=== PATIENT | female | born 1985 | race African-American/Black ===

== ENCOUNTER 2016-11-25 00:03 | Inpatient (IN) | payer OTHER ==
[2016-11-25 00:33] VITALS: BMI 48.1
[2016-11-25] MEDS ORDERED: Promethazine HCl 25 MG/ML VIAL IM PRN ×2 (01:29→04:11)
[2016-11-25] MEDS ORDERED: Acetaminophen 500 MG TAB PO PRN (01:29)
[2016-11-25] MEDS ORDERED: Ondansetron HCl/PF 4 MG/2 ML Vial IVP PRN ×3 (01:29→04:11)
[2016-11-25] MEDS ORDERED: Bicitra 30 ML UDCUP PO SCH (01:30)
[2016-11-25 01:49] LABS: Hematocrit 33.6 % (36.0-47.0); Mean Platelet Volume 6.2 fL (7.4-10.4); White Blood Cell (WBC) Count 8.9 thou/uL (4.8-10.8)
[2016-11-25] MEDS: Lactated Ringer's 1,000 ML IV SCH ×3 (01:59→19:46)
[2016-11-25] MEDS ORDERED: Bupivacaine/Epinephrine 0.5% 10 ML VIAL ONE (02:59)
[2016-11-25] MEDS ORDERED: Fentanyl 100 MCG/2 ML VIAL ONE ×2 (02:59→03:25)
[2016-11-25] MEDS ORDERED: Dexamethasone 4 mg/ml Vial ONE (03:21)
[2016-11-25] MEDS ORDERED: Ondansetron HCl/PF 4 MG/2 ML Vial ONE (03:21)
[2016-11-25] MEDS ORDERED: Ketorolac Tromethamine 30 MG/ML VIAL ONE (03:21)
[2016-11-25] MEDS ORDERED: Oxytocin 10 UNITS/ML VIAL ONE (03:21)
[2016-11-25] MEDS ORDERED: Naloxone HCl 0.4 mg/ml Vial IVP PRN ×2 (04:11)
[2016-11-25] MEDS ORDERED: HYDROmorphone 2 MG/ML VIAL SLOW IVP PRN (04:11)
[2016-11-25] MEDS ORDERED: Naloxone HCl 0.4 mg/ml Vial IV PRN (04:11)
[2016-11-25] MEDS ORDERED: Meperidine HCl/PF 25 MG/ML VIAL SLOW IVP PRN (04:11)
[2016-11-25] MEDS ORDERED: Eucerin (Mineral Oil/Petrolatum,White) 30 gm Jar TOP PRN (04:11)
[2016-11-25] MEDS ORDERED: Promethazine HCl 25 MG SUPP PR PRN (04:11)
[2016-11-25] MEDS ORDERED: Communication Order-Pharmacy FS SCH (04:15)
[2016-11-25] MEDS ORDERED: Ketorolac Tromethamine 30 MG/ML VIAL IVP SCH (04:15)
[2016-11-25] MEDS ORDERED: Bisacodyl 10 MG SUPP PR PRN (05:56)
[2016-11-25] MEDS ORDERED: Acetaminophen 325 MG TAB PO PRN (05:56)
[2016-11-25] MEDS ORDERED: Adacel (T-DAP) 0.5 ML VIAL IM ONE (05:56)
[2016-11-25] MEDS ORDERED: Lanolin Ointment 7 GM TUBE TOP PRN (05:56)
[2016-11-25] MEDS: Ibuprofen 800 MG TAB PO SCH ×2 (06:36→17:40)
[2016-11-25] MEDS: diphenhydrAMINE HCl 50 MG/ML 1 ML VIAL IVP PRN ×2 (08:43→17:41)
--- NOTE | 2016-11-25 09:35 | PDOC.LDHP ---
Labor and Delivery H&P HPI: Pt with previous h/o preE x 2, short IPI and preceding complicated by FGR and delivered at 31w by presents with worsening ctx and found to have changed from 1 to 4 cm, no LOF, VB, or preE symptoms. PMH: as above PSH: All: latex Meds: PNV, ASA SH: denies Apple FH: noncontributory Previous surgical history: low tranverse CS Allergies/Adverse Reactions: Allergies Allergy/AdvReac Type Severity Reaction Status Date / Time latex Allergy Intermediate Hives Verified 11/25/16 00:34 FLU SHOT Allergy Hives Uncoded 11/21/16 05:27 Social history: none - Physical Exam General: other (Pain during ctx) Heart: RRR Lungs: nonlabored breathing Abdomen: gravid Extremeties: no edema FHT: category 1 - Assessment L&D Assessment: labor - Plan Plan: to OR for section (Pt s/p 2 doses BTMZ. Declines NATANAEL d/t short IPI and risks after counseling. To OR for RLTCD. NICU notified.)
--- NOTE | 2016-11-25 10:48 | OP-2 ---
DATE OF PROCEDURE: 11/25/2016 RESIDENT SURGEON: Mariano Rich M.D. ATTENDING: Melo Wells M.D. PROCEDURE PERFORMED: Repeat low-transverse section. PREOPERATIVE DIAGNOSES: 1. Pre-term intrauterine . 2. Prior x2. 3. History of preclampsia. 4. History of intrauterine growth resection with prior . 5. History of multiple first trimester losses. POSTOPERATIVE DIAGNOSES: 1. Pre-term intrauterine , delivered. 2. Prior x2. 3. History of preclampsia. 4. History of intrauterine growth resection with prior . 5. History of multiple first trimester losses. INDICATIONS: The patient is a 31-year-old G7, P1-1-4-2 at 34.4 weeks gestation who presented in latent labor because she was planned for a repeat section. The patient then changed from 1 cm to 4 cm over the course of 2 hours and therefore, was taken back for repeat . PROCEDURE IN DETAIL: After risks, benefits, and alternatives were explained to the patient, she gave informed consent. Preoperative antibiotics included cefazolin 2 grams IV. The patient was taken to the operating room and spinal anesthesia was administered. She was placed in supine position with a left tilt. She was prepped and draped in the usual sterile fashion. A Pfannenstiel incision was made with scalpel and carried down to level of the fascia, which was sharply nicked. Fascial cut was extended bilaterally with Mendez scissors. The inferior and superior edges of the cut fascial edges were elevated with Alexander clamps and underlying rectus muscles were sharply and bluntly dissected free. The recti were divided digitally and retracted manually. The peritoneum was entered bluntly and retracted manually. Bob O was placed. Bladder flap was created using Metzenbaum scissors. Low transverse score was made with scalpel and uterus was entered in the midline with the scalpel. Clear fluid was seen. Hysterotomy was extended manually. The infant was noted to be in vertex position, face up and was easily delivered by fundal pressure. Mouth and nares were bulb suctioned. Cord was clamped and cut, and grossly normal male infant was handed to waiting nurse. Cord blood was obtained. Placenta was manually extracted, found to be intact with three-vessel cord and discarded. The uterus was externalized. The endometrium was curetted with a dry lap. A bladder blade was placed and the uterus was then closed with a running locking 1 Monocryl suture. Following this, hemostasis was noted. Various bleeders were cauterized. Then a minor bleeder was noted in the midline of the hysterotomy, which was closed with a [id number] 1 Monocryl. A 1 cm uterine fibroid was noted posterior to the right fallopian tube. Fascia was closed with running nonlocking 0 PDS suture. Subcutaneous tissue was irrigated and various bleeders were cauterized. Skin was approximated with janene and pressure dressing was placed. All counts were correct. The patient tolerated the procedure well and was taken to recovery room in stable condition. ESTIMATED BLOOD LOSS: 600 mL. COMPLICATIONS: None. SPECIMENS: Cord blood sent to lab for blood type. FINDINGS: Grossly normal male with Apgars of 7 and 9. Grossly normal placenta with three-vessel cord discarded. DRAINS: Kirk to gravity draining clear urine. MTDD
[2016-11-25] MEDS: Ketorolac Tromethamine 30 MG/ML VIAL IVP PRN (17:41)
[2016-11-25] MEDS: Prenatal Vitamin 1 TAB PO SCH (17:43)
[2016-11-26] MEDS: Ketorolac Tromethamine 30 MG/ML VIAL IVP PRN (00:28)
[2016-11-26] MEDS: diphenhydrAMINE HCl 50 MG/ML 1 ML VIAL IVP PRN (00:28)
[2016-11-26] MEDS: Ibuprofen 800 MG TAB PO SCH ×4 (00:39→22:13)
[2016-11-26] MEDS: Lactated Ringer's 1,000 ML IV SCH ×3 (02:23→18:25)
[2016-11-26 05:45] LABS: Hematocrit 30.8 % (36.0-47.0); Mean Platelet Volume 6.3 fL (7.4-10.4); Red Blood Cell (RBC) Count 3.69 mill/uL (4.20-5.40); White Blood Cell (WBC) Count 12.7 thou/uL (4.8-10.8)
--- NOTE | 2016-11-26 09:03 | PDOC.PP ---
Post Progress Note Post Day #: 2 PO intake tolerated: yes Flatus: yes Ambulation: yes Vital Signs (12 hours) Temp Pulse Resp BP Pulse Ox 11/26/16 04:20 97.9 F 86 20 126/68 99 11/26/16 00:36 98.3 F 100 18 11/26/16 00:31 98.3 F 100 18 126/67 98 Weight Weight 131.088 kg - Physical Examination General: NAD Cardiovascular: no m/r/g, RRR Respiratory: clear to ausculation bilateral Abdominal: + bowel sounds, lochia, no distention, appropriately TTP Fundus firm & at: 3cm below umbilicus Extremities: negative homans (B) Skin: no rash Neurological: no gross focal deficits Psychiatric: normal affect Result Diagrams: 11/26/16 05:24 Additional Labs: Post Labs Blood Type A POSITIVE 11/25/16 01:30 Hep Bs Antigen Non-Reactive S/CO (NonReactive) 11/25/16 01:30 (1) Intrauterine Code(s): Z34.90 - ENCNTR FOR SUPRVSN OF NORMAL , UNSP, UNSP TRIMESTER Status: Acute Comment: delivered M at 0320 on 11/25 via R LTCS. Mom doing well this AM, ambulating, tolerating po. Has been able to pump and breastfeed while baby is still in NICU. No concerns this AM. Desires to try nexplanon for contraception. (2) History of pre-eclampsia Code(s): Z87.59 - PERSONAL HISTORY OF COMP OF PREG, CHLDBRTH AND THE PUERP Status: Acute Comment: Blood pressures have been normal still. No signs/ symptoms of preE this . <Mariano Rich - Last Filed: 11/26/16 09:00> Vital Signs (12 hours) Temp Pulse Resp BP Pulse Ox 11/26/16 08:05 98 F 91 18 128/67 11/26/16 08:00 98 F 91 18 11/26/16 04:20 97.9 F 86 20 126/68 99 11/26/16 00:36 98.3 F 100 18 11/26/16 00:31 98.3 F 100 18 126/67 98 Weight Weight 131.088 kg Result Diagrams: 11/26/16 05:24 Additional Labs: Post Labs Blood Type A POSITIVE 11/25/16 01:30 Hep Bs Antigen Non-Reactive S/CO (NonReactive) 11/25/16 01:30 - Assessment/Plan Seen and examined with Dr. Rihc. I agree with his assessment and plan except as detailed below. Normal pp course. Good UOP, wound vac with minimal output, reassuring BPs. Contraceptive counseling prior to discharge. If she becomes again she will require 17OHP and ASA ppx. <Melo Wells - Last Filed: 11/26/16 09:36>
[2016-11-26] MEDS: Prenatal Vitamin 1 TAB PO SCH (09:24)
[2016-11-26] MEDS: HYDROcodone/Acetaminophen 5/325 mg Tablet PO PRN ×3 (09:25→20:04)
[2016-11-26] MEDS ORDERED: diphenhydrAMINE HCl 25 MG CAP PO PRN (09:47)
[2016-11-26] MEDS ORDERED: Naloxone HCl 0.4 mg/ml Vial IV SCH (10:30)
[2016-11-27] MEDS ORDERED: HYDROcodone/Acetaminophen 5/325 mg Tablet PO PRN ×2 (00:27)
[2016-11-27] MEDS: HYDROcodone/Acetaminophen 5/325 mg Tablet PO PRN ×5 (00:50→19:54)
[2016-11-27] MEDS: Lactated Ringer's 1,000 ML IV SCH ×2 (01:05→09:12)
[2016-11-27] MEDS: Ibuprofen 800 MG TAB PO SCH ×3 (06:13→21:02)
--- NOTE | 2016-11-27 08:14 | PDOC.PP ---
Post Progress Note Post Day #: 2 PO intake tolerated: yes Flatus: yes Ambulation: yes Vital Signs (12 hours) Temp Pulse Resp BP 11/27/16 07:34 99.1 F 107 H 20 135/66 11/27/16 00:02 98.2 F 103 H 18 129/65 Weight Weight 131.088 kg - Physical Examination General: NAD Cardiovascular: no m/r/g, RRR Respiratory: clear to ausculation bilateral Abdominal: + bowel sounds, lochia, no distention, appropriately TTP Fundus firm & at: 3cm below Extremities: negative homans (B) Skin: no rash Neurological: no gross focal deficits Psychiatric: normal affect Result Diagrams: 11/26/16 05:24 Additional Labs: Post Labs Blood Type A POSITIVE 11/25/16 01:30 Hep Bs Antigen Non-Reactive S/CO (NonReactive) 11/25/16 01:30 (1) Intrauterine Code(s): Z34.90 - ENCNTR FOR SUPRVSN OF NORMAL , UNSP, UNSP TRIMESTER Status: Acute Comment: delivered M at 0320 on 11/25 via R LTCS. Mom doing well this AM, ambulating, tolerating po. States she did not get much sleep last night. Has been able to pump and breastfeed while baby is still in NICU. Desires to try nexplanon for contraception. Likely stable to be discharged today, possibly B&B while baby is in NICU. (2) History of pre-eclampsia Code(s): Z87.59 - PERSONAL HISTORY OF COMP OF PREG, CHLDBRTH AND THE PUERP Status: Acute Comment: Blood pressures have been normal still. No signs/ symptoms of preE this . <Mariano Rich - Last Filed: 11/27/16 08:12> Vital Signs (12 hours) Temp Pulse Resp BP 11/27/16 08:00 99.1 F 107 H 20 11/27/16 07:34 99.1 F 107 H 20 135/66 11/27/16 00:02 98.2 F 103 H 18 129/65 Weight Weight 131.088 kg Result Diagrams: 11/27/16 10:59 Additional Labs: Post Labs Blood Type A POSITIVE 11/25/16 01:30 Hep Bs Antigen Non-Reactive S/CO (NonReactive) 11/25/16 01:30 - Assessment/Plan Seen and examined and agree with H&P documented by Dr. Rich. I agree with his A&P except as detailed with the following addendum. Tachycardic with normal WBC and hgb, will bolus and recheck. Low suspicion for VTE at this time. <Melo Wells - Last Filed: 11/27/16 11:21>
[2016-11-27] MEDS: Prenatal Vitamin 1 TAB PO SCH (09:09)
[2016-11-27] MEDS: Docusate 100 MG CAP PO PRN ×2 (09:12→21:02)
[2016-11-27] MEDS ORDERED: Sodium Chloride 0.9% 1,000 ML IV SCH (10:45)
[2016-11-27 11:09] LABS: #Eosinphils 0.3 thou/uL (0.0-0.7); #Lymphocytes 2.4 thou/uL (1.20-3.40); #Monocytes 0.8 thou/uL (0.11-0.59); #Neutrophils 5.2 thou/uL (1.40-6.50); %Basophils 0.2 % (0.0-1.0); %Eosinophils 3.8 % (0.0-10.0); %Lymphocytes 27.3 % (21.0-51.0); %Monocytes 9.6 % (0.0-10.0); Hematocrit 32.1 % (36.0-47.0); Mean Platelet Volume 6.3 fL (7.4-10.4); Red Blood Cell (RBC) Count 3.76 mill/uL (4.20-5.40); White Blood Cell (WBC) Count 8.7 thou/uL (4.8-10.8)
[2016-11-28] MEDS: HYDROcodone/Acetaminophen 5/325 mg Tablet PO PRN ×4 (01:47→20:25)
[2016-11-28] MEDS: Lactated Ringer's 1,000 ML IV SCH ×4 (03:22→18:51)
[2016-11-28] MEDS: Ibuprofen 800 MG TAB PO SCH ×3 (05:56→21:10)
[2016-11-28] MEDS: Docusate 100 MG CAP PO PRN ×2 (09:16→20:25)
[2016-11-28] MEDS: Prenatal Vitamin 1 TAB PO SCH (09:16)
--- NOTE | 2016-11-28 11:31 | PDOC.PP ---
Post Progress Note Post Day #: 3 -: pain control ok, did not sleep well overnight PO intake tolerated: yes Flatus: yes Ambulation: yes Vital Signs (12 hours) Temp Pulse Resp BP 11/28/16 11:00 98.2 F 112 H 18 128/67 11/28/16 08:00 97.5 F L 95 18 116/76 11/28/16 05:50 95 14 161/74 H 11/28/16 00:50 98.6 F 106 H 16 120/63 Weight Weight 131.088 kg - Physical Examination General: NAD Cardiovascular: no m/r/g, RRR Respiratory: clear to ausculation bilateral Abdominal: + bowel sounds, no distention, appropriately TTP Fundus firm & at: 4cm below umbilicus Extremities: negative homans (B) Skin: no rash Neurological: no gross focal deficits Psychiatric: normal affect Result Diagrams: 11/27/16 10:59 Additional Labs: Post Labs Blood Type A POSITIVE 11/25/16 01:30 Hep Bs Antigen Non-Reactive S/CO (NonReactive) 11/25/16 01:30 (1) Tachycardia Code(s): R00.0 - TACHYCARDIA, UNSPECIFIED Status: Acute Comment: Unclear etiology. Did not resolve after 1L NS bolus, CBC shows no worsening anemia post -op. Legs edematous, but non pitting and nonTTP. Denies CP, SOB. Will f/u TSH and T4 today. Consider CTPE if symptoms not resolving and labs remain inconclusive. (2) Intrauterine Code(s): Z34.90 - ENCNTR FOR SUPRVSN OF NORMAL , UNSP, UNSP TRIMESTER Status: Acute Comment: delivered M at 0320 on 11/25 via R LTCS. Mom doing well this AM, ambulating, tolerating po. Has been able to pump and breastfeed while baby is still in NICU. Desires to try nexplanon for contraception. B&B while baby is in NICU. (3) History of pre-eclampsia Code(s): Z87.59 - PERSONAL HISTORY OF COMP OF PREG, CHLDBRTH AND THE PUERP Status: Acute Comment: Blood pressures have been normal still. No signs/ symptoms of preE this . <Mariano Rich - Last Filed: 11/28/16 11:29> Vital Signs (12 hours) Temp Pulse Resp BP BP 11/29/16 09:25 110 H 131/82 11/29/16 08:30 98.5 F 96 20 11/29/16 08:18 98.5 F 96 20 177/79 H 11/29/16 05:30 97.7 F 89 20 143/79 H 11/29/16 00:00 98.5 F 97 20 133/71 Weight Weight 131.088 kg Result Diagrams: 11/27/16 10:59 Additional Labs: Post Labs Blood Type A POSITIVE 11/25/16 01:30 Hep Bs Antigen Non-Reactive S/CO (NonReactive) 11/25/16 01:30 - Assessment/Plan Seen and examined with Dr. Rich and barrera portions of the H&P repeated. I agree with his assessment and plan as documented with the following addendum: Unremarkable course with the exception of intermittent tachcyardia. If no significant result from the workup will consider CTA chest. <Melo Wells - Last Filed: 11/29/16 10:36>
[2016-11-28 12:46] LABS: Free T3 2.84 pg/mL (1.71-3.71)
[2016-11-28 16:13] LABS: Troponin I Less than 0.010 ng/mL (< 0.028)
[2016-11-28 17:54] LABS: Oxyhemoglobin 96.1 % (94.0-97.0); Sodium 139 mmol/L (135-148)
[2016-11-28 17:55] LABS: Mode ROOM AIR; Modified Allen's Test POSITIVE
[2016-11-29] MEDS: Ibuprofen 800 MG TAB PO SCH ×2 (05:31→14:05)
[2016-11-29] MEDS: HYDROcodone/Acetaminophen 5/325 mg Tablet PO PRN ×2 (05:34→12:41)
[2016-11-29] MEDS: Lactated Ringer's 1,000 ML IV SCH ×2 (05:37→09:28)
--- NOTE | 2016-11-29 07:14 | PDOC.PP ---
Post Progress Note Post Day #: 4 PO intake tolerated: yes Flatus: yes Ambulation: yes Vital Signs (12 hours) Temp Pulse Resp BP BP 11/29/16 05:30 97.7 F 89 20 143/79 H 11/29/16 00:00 98.5 F 97 20 133/71 11/28/16 20:20 99.3 F 110 H 20 126/73 Weight Weight 131.088 kg - Physical Examination General: NAD Cardiovascular: no m/r/g Deviation from normal: tachycardic Respiratory: clear to ausculation bilateral Abdominal: + bowel sounds, no distention, appropriately TTP Fundus firm & at: 4cm below umbilicus Extremities: negative homans (B) Skin: no rash Neurological: no gross focal deficits Psychiatric: normal affect Result Diagrams: 11/27/16 10:59 Additional Labs: Post Labs Blood Type A POSITIVE 11/25/16 01:30 Hep Bs Antigen Non-Reactive S/CO (NonReactive) 11/25/16 01:30 (1) Tachycardia Code(s): R00.0 - TACHYCARDIA, UNSPECIFIED Status: Acute Comment: Unclear etiology. Did not resolve after 1L NS bolus, CBC shows no worsening anemia post -op. Thyroid studies normal. EKG shows sinus tachycardia with occasional PVCs. Cardiac enzymes negative. ABG within normal limits. Legs edematous, but non pitting, non-erythematous, and nonTTP. Denies CP, SOB. Consider CTPE if symptoms not resolving and labs remain inconclusive. (2) Intrauterine Code(s): Z34.90 - ENCNTR FOR SUPRVSN OF NORMAL , UNSP, UNSP TRIMESTER Status: Acute Comment: delivered M at 0320 on 11/25 via R LTCS. Mom doing well this AM, ambulating, tolerating po. Has been able to pump and breastfeed while baby is still in NICU. Desires to try nexplanon for contraception. B&B while baby is in NICU. (3) History of pre-eclampsia Code(s): Z87.59 - PERSONAL HISTORY OF COMP OF PREG, CHLDBRTH AND THE PUERP Status: Acute Comment: Blood pressures have been normal still. No signs/ symptoms of preE this . <Mariano Rich - Last Filed: 11/29/16 09:23> Vital Signs (12 hours) Temp Pulse Resp BP BP 11/29/16 09:25 110 H 131/82 11/29/16 08:30 98.5 F 96 20 11/29/16 08:18 98.5 F 96 20 177/79 H 11/29/16 05:30 97.7 F 89 20 143/79 H 11/29/16 00:00 98.5 F 97 20 133/71 Weight Weight 131.088 kg Result Diagrams: 11/27/16 10:59 Additional Labs: Post Labs Blood Type A POSITIVE 11/25/16 01:30 Hep Bs Antigen Non-Reactive S/CO (NonReactive) 11/25/16 01:30 - Assessment/Plan Seen and examined with Dr. Rich and barrera portions repeated. I agree with his assessment and plan as written with the following addendum. Persistent tachycardia, will proceed with CTA. <Melo Wells - Last Filed: 11/29/16 10:38>
[2016-11-29] MEDS: Prenatal Vitamin 1 TAB PO SCH (09:24)
[2016-11-29] MEDS ORDERED: Iopamidol 370 76% 100 ML VIAL ONE (14:09)
--- NOTE | 2016-11-29 14:12 | CT ---
EXAM: CT ANGIOGRAM OF CHEST: COMPARISON: 02/17/13. HISTORY: Chest pain. Shortness of breath and hypoxia. Status on Sunday. Deliver via . Tachycardia. Evaluate for pulmonary artery embolism. TECHNIQUE: CT angiogram of the chest was performed in the axial plane. Sagittal and coronal 3-dimensional refo rmatted images are submitted for interpretation. FINDINGS: No mediastinal mass, lymphadenopathy, or hematoma. Heart size is within normal limits. No signific ant pericardial fluid. The thoracic aorta and upper abdominal aorta have an overall normal caliber. No periaortic fat stranding. The visualized solid organs are unremarkable. Minimal dependent atelectatic changes in the lung bases. No mass. No consolidation. No pleural ef fusion or pneumothorax. No osseous abnormalities. Limited evaluation of the pulmonary arterial system due to poor timing of contrast bolus. There is no obvious filling defect in either main pulmonary artery to suggest pulmonary artery embolism. Jannette luation of the lobar, segmental, and subsegmental arteries is limited due to technique. IMPRESSION: Limited evaluation of the pulmonary arterial system due to timing of bolus. No evidence of pulmonar y artery embolism to the level of the distal main pulmonary arteries. POS: [facility]
[2016-11-29 14:22] VITALS: BP 129/82; TEMP 99
--- NOTE | 2016-11-30 09:05 | EKG ---
Test Reason : Blood Pressure : / mmHG Vent. Rate : 105 BPM Atrial Rate : 105 BPM P-R Int : 180 ms QRS Dur : 084 ms QT Int : 350 ms P-R-T Axes : 064 054 029 degrees QTc Int : 462 ms Sinus tachycardia with occasional Premature ventricular complexes Otherwise normal ECG When compared with ECG of 08-APR-2014 13:34, Premature ventricular complexes are now Present Confirmed by MESFIN MCKINLEY ([id number]) on 11/30/2016 9:05:21 AM Referred By: HIPOLITO Confirmed By:MESFIN MCKINLEY
== END 2016-11-29 16:40 | disposition home or self-care (01) | DRG 766 ==
LOC: L&D/OP 00:03 → L&D 01:35 → 3SW 05:43
PROVIDERS: ADMIT Emergency Medicine; ATTEND Emergency Medicine
PROC: 10D00Z1 Extraction of Products of Conception, Low, Open Approach (ICD-10-PCS; principal; 2016-11-25)
DX: O60.14X0 Preterm labor third trimester with preterm delivery third trimester, not applicable or unspecified (principal); D25.9 Leiomyoma of uterus, unspecified; O34.211 Maternal care for low transverse scar from previous cesarean delivery; O34.13 Maternal care for benign tumor of corpus uteri, third trimester; Z3A.34 34 weeks gestation of pregnancy; Z37.0 Single live birth; Z91.040 Latex allergy status; R00.0 Tachycardia, unspecified
CPT/HCPCS: 36415; 71275; 76815; 82553; 82805; 84439; 84443; 84481; 84484; 85025; 85027; 86780; 86850; 86900; 86901; 87340; 88307; 93005; 93010; A4216; J1100; J1200; J1885; J2274; J2310; J2405; J2590; J3010; J3490

== ENCOUNTER 2017-01-16 13:34 | Outpatient (CLI) | payer OTHER ==
--- NOTE | 2017-01-16 15:34 | ULT ---
THYROID ULTRASOUND: Date: 01/16/17 HISTORY: Thyromegaly. COMPARISON: None. TECHNIQUE: Sagittal and transverse imaging of the thyroid gland is performed. FINDINGS: Thyroid isthmus measures 0.5 cm. Right thyroid lobe measures 5.3 x 2.0 x 2.0 cm. Left thyroid lobe measures 5.4 x 2.1 x 1.7 cm. There are no solid or cystic masses throughout the thyroid gland. IMPRESSION: No solid or cystic masses through the thyroid gland. POS: [facility]
== END 2017-01-16 13:35 | disposition home or self-care (01) ==
LOC: SCSULT 13:34
PROVIDERS: ATTEND Family Medicine
DX: E04.9 Nontoxic goiter, unspecified (principal)
CPT/HCPCS: 76536

== ENCOUNTER 2018-09-21 20:54 | Emergency (ER) | payer MEDICAID, OTHER ==
[~2018-09-21 20:54] MED LIST: ISOVUE-370 76%-LOCM 1 ML ONE
[2018-09-21 21:39] LABS: #Basophils 0.1 thou/uL (0.0-0.2); #Eosinphils 0.1 thou/uL (0.0-0.7); #Lymphocytes 1.6 thou/uL (1.20-3.40); #Monocytes 0.6 thou/uL (0.11-0.59); #Neutrophils 3.9 thou/uL (1.40-6.50); %Basophils 0.8 % (0.0-1.0); %Eosinophils 1.3 % (0.0-10.0); %Lymphocytes 25.4 % (21.0-51.0); %Monocytes 9.9 % (0.0-10.0); %Neutrophils 62.5 % (42.0-75.0); Hemoglobin 12.7 g/dL (12.0-16.0); Mean Corpuscular HGB CONC 31.8 g/dL (32.0-36.0); Mean Corpuscular Hemoglobin 27.1 pg (27.0-31.0); Mean Corpuscular Volume 85.3 fL (78.0-98.0); Mean Platelet Volume 6.7 fL (7.4-10.4); Platelet Count 457 thou/uL (130-400); RBC Distribution Width 13.3 % (11.5-14.5); Red Blood Cell (RBC) Count 4.67 mill/uL (4.20-5.40); White Blood Cell (WBC) Count 6.2 thou/uL (4.8-10.8)
[2018-09-21 22:00] LABS: ALT (SGPT) 16 U/L (8-55); AST (SGOT) 18 U/L (5-34); Albumin 4.3 g/dL (3.5-5.0); Alkaline Phosphatase 76 U/L (40-150); Anion Gap 14 mmol/L (10-20); BUN (Urea Nitrogen) 11 mg/dL (7.0-18.7); Bilirubin, Total 0.4 mg/dL (0.2-1.2); Calc. Creatinine Clearance 0 mL/min (70-130); Calcium 9.5 mg/dL (7.8-10.44); Carbon Dioxide 21 mmol/L (22-29); Chloride 106 mmol/L (98-107); Estimated GFR-MDRD 88; Globulin 3.5 g/dL (2.4-3.5); Glucose 91 mg/dL (70-105); Lipase 16 U/L (8-78); Potassium 3.7 mmol/L (3.5-5.1); Protein, Total 7.8 g/dL (6.0-8.3); Sodium 137 mmol/L (136-145)
[2018-09-21] MEDS ORDERED: Morphine 4 MG/ML VIAL ONE (22:17)
[2018-09-21] MEDS ORDERED: Ondansetron PF 4 MG/2 ML Vial ONE (22:26)
[2018-09-21] MEDS ORDERED: Metoclopramide HCl 10 MG/2 ML VIAL ONE (23:29)
[2018-09-21] MEDS ORDERED: diphenhydrAMINE 50 MG/ML VIAL ONE (23:29)
[2018-09-21 23:31] LABS: Bilirubin Negative (Negative); Blood, Urine Trace (Negative); Clarity Turbid (Clear); Glucose, Urine (Dipstick) Normal (Negative); Leukocyte 250 Leu/uL (Negative); Mucous/LPF Rare LPF (<2+); Nitrite Negative (Negative); Protein, Urine (Dipstick) 50 mg/dL (Neg-Trace); Squamous Epithelial 21-50 HPF (0-3)
[2018-09-21 23:37] LABS: Bacteria/HPF 1+ HPF (None Seen)
[2018-09-21 23:38] LABS: Pregnancy Test - Urine (BHCG) Negative (Negative); Pregu Control Background? CLEAR/WHITE (CLR/WHITE); Pregu Control Bar Appear? YES (CONTROL BAR); Specific Gravity 1.035 (1.002-1.036)
[2018-09-21 23:51] LABS: BHCG - Serum Negative (NEGATIVE); Pregs Control Background? CLEAR/WHITE (CLR/WHITE); Pregs Control Bar Appear? YES (CONTROL BAR)
--- NOTE | 2018-09-22 07:54 | CT ---
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 Coronal and sagittal reformatted images were created and reviewed. COMPARISON: No relevant prior studies available. FINDINGS: Liver: There is may be fatty infiltration of the liver. Gallbladder and bile ducts: Normal. No calcified stones. No ductal dilation. Pancreas: Normal. No ductal dilation. Spleen: Normal. No splenomegaly. Adrenals: Normal. No mass. Kidneys and ureters: Normal. No hydronephrosis. Stomach and bowel: Normal. No obstruction. Appendix: The appendix is unremarkable. Intraperitoneal space: There is a small amount of free fluid in the cul-de-sac. Vasculature: Normal. No abdominal aortic aneurysm. Lymph nodes: Normal. No enlarged lymph nodes. Bladder: Unremarkable as visualized. Reproductive: Unremarkable as visualized. Bones/joints: No fracture. No dislocation. Soft tissues: Unremarkable. IMPRESSION: Small amount of free fluid which may be physiologic. Thank you for allowing us to participate in the care of your patient. Dictated and Authenticated by: Yang Cifuentes MD 09/22/2018 2:01 AM Central Time ([place] & [place]) FINAL REPORT EMERGENT AFTER HOURS CT OF THE ABDOMEN AND PELVIS WITH COTNRAST: FINDINGS/IMPRESSION: I agree with the findings and impression given in the preliminary report per [facility] physician. No josefina dence of acute intraabdominal/pelvic abnormality.
== END 2018-09-22 01:45 | disposition home or self-care (01) ==
LOC: ERS 20:54
DX: R10.9 Unspecified abdominal pain (principal); N39.0 Urinary tract infection, site not specified; F41.9 Anxiety disorder, unspecified; Z79.899 Other long term (current) drug therapy
CPT/HCPCS: 36415; 74177; 80053; 81003; 81015; 81025; 83605; 83690; 84703; 85025; 96361; 96365; 96375; J1200; J2270; J2405; J2765; Q9966